=== PATIENT | male | born 1950 | race Caucasian/White ===

== ENCOUNTER → 2018-08-18 | Outpatient (CLI) | payer MEDICARE, BC ==
--- NOTE | 2018-08-18 14:00 | RADIOLOGY REPORT (SQ) ---
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 TECHNIQUE: Right shoulder images acquired and stored on PACS. Multiplanar imaging to include fat sen sitive sequences such as T1, water sensitive sequences such as FST2/STIR, cartilage sensitive sequenc es such as FSPD/gradient-echo sequences. LIMITATIONS: None. FINDINGS: BONE MARROW AND CORTEX: No worrisome bone lesions or marrow replacement. No occult fractur es. JOINT OR BURSAL EFFUSION: No significant joint or bursal fluid. No suggestion of loose bodies. GLENO-HUMERAL ARTICULATION: Intact. Central cartilage loss. Small humeral head osteophytes. ACROMION AND AC JOINT: Type 2. Moderate AC joint arthropathy. ROTATOR CUFF AND INTERVAL: Diffuse tendinosis. No significant tear identified. No rotator interval tear. No rotator interval thickening to suggest adhesive capsulitis. LABRUM AND BICEPS LABRAL COMPLEX: Fraying of the superior labrum. Biceps intact. REMAINDER OF LABRUM AND IGHL : Intact. PERIARTICULAR AND ADJACENT SOFT TISSUES: No masses or abnormal nodes. OTHER: No other significant finding. IMPRESSION: 1. AC joint arthropathy. Cuff tendinosis. No significant tear identified. 2. Mild glenohumeral joint arthropathy. TECHNICAL DOCUMENTATION: JOB ID: [id number] 1983 [facility]- All Rights Reserved Reading location - IP/workstation name: [facility]
== END ==
LOC: RAD 12:26
PROVIDERS: ATTEND Orthopaedic Surgery
DX: M75.41 Impingement syndrome of right shoulder (principal)